=== PATIENT | female | born 1985 ===

== ENCOUNTER → 2017-05-27 | Outpatient (CLI) | payer BC | LOC: FIMAGING 11:33 | PROVIDERS: ATTEND Advanced Practice Midwife | DX: O10.912 Unspecified pre-existing hypertension complicating pregnancy, second trimester (principal); O24.410 Gestational diabetes mellitus in pregnancy, diet controlled; O99.212 Obesity complicating pregnancy, second trimester; E66.9 Obesity, unspecified; Z68.41 Body mass index [BMI] 40.0-44.9, adult; Z3A.14 14 weeks gestation of pregnancy ==

== ENCOUNTER → 2017-07-15 | Outpatient (CLI) | payer BC | LOC: FIMAGING 09:37 | PROVIDERS: ATTEND Advanced Practice Midwife | DX: O10.912 Unspecified pre-existing hypertension complicating pregnancy, second trimester (principal); O24.419 Gestational diabetes mellitus in pregnancy, unspecified control; O99.212 Obesity complicating pregnancy, second trimester; Z68.41 Body mass index [BMI] 40.0-44.9, adult; Z3A.21 21 weeks gestation of pregnancy ==

== ENCOUNTER 2017-07-26 11:19 | Observation (INO) | payer BC ==
[2017-07-26 11:59] LABS: % IMMATURE GRANULYOCYTES 0.5 % (0.0-1.1); ABSOLUTE IMMATURE GRANULOCYTES 0.05 10^3/uL (0.00-0.10); ADD DIFF? NO; ADD MORPH? NO; ADD SCAN? NO; ATYPICAL LYMPHOCYTE FLAG 0 (0-99); FRAGMENT RBC FLAG 0 (0-99); HEMATOCRIT 35.7 % (38.0-47.0); HEMOGLOBIN 11.7 g/dL (12.6-16.3); LEFT SHIFT FLG 0 (0-99); LIPEMIA HEMOLYSIS FLAG 80 (0-99); MEAN CELL HEMOGLOBIN 29.1 pg (27.9-34.1); MEAN CELL HEMOGLOBIN CONCENTR. 32.8 g/dL (32.4-36.7); MEAN CELL VOLUME 88.8 fL (81.5-99.8); MEAN PLATELET VOLUME 11.1 fL (8.7-11.7); PLATELET CLUMPS FLAG 0 (0-99); PLATELET COUNT 209 10^3/uL (150-400); RED BLOOD CELL COUNT 4.02 10^6/uL (4.18-5.33); RED CELL DISTRIBUTION WIDTH 13.7 % (11.5-15.2)
[2017-07-26 12:05] LABS: ALANINE AMINOTRANSFERASE 34 IU/L (9-52); ASPARTATE AMINOTRANSFERASE 15 IU/L (14-46); BILIRUBIN,TOTAL 0.1 mg/dL (0.1-1.4); BILIRUBIN-CONJUGATED 0.1 mg/dL (0.0-0.5); CREATININE 0.5 mg/dL (0.6-1.0); GLOMERULAR FILTRATION RATE > 60; LACTATE DEHYDROGENASE 386 IU/L (313-618); URIC ACID 4.1 mg/dL (2.5-6.8)
[2017-07-26 12:48] LABS: ALANINE AMINOTRANSFERASE 29 IU/L (9-52); ALBUMIN 3.6 g/dL (3.5-5.0); ALKALINE PHOSPHATASE 59 IU/L (38-126); ANION GAP 13 mEq/L (8-16); ASPARTATE AMINOTRANSFERASE 15 IU/L (14-46); BILIRUBIN,TOTAL 0.1 mg/dL (0.1-1.4); CALCIUM 9.7 mg/dL (8.5-10.4); CARBON DIOXIDE 18 mEq/l (22-31); CHLORIDE 106 mEq/L (97-110); CREATININE 0.5 mg/dL (0.6-1.0); GLOMERULAR FILTRATION RATE > 60; GLUCOSE 85 mg/dL (70-100); POTASSIUM 4.7 mEq/L (3.5-5.2); SODIUM 137 mEq/L (134-144); TOTAL PROTEIN 6.7 g/dL (6.3-8.2)
[2017-07-26 13:24] LABS: COLOR YELLOW; LEUKOCYTE ESTERASE,URINE NEGATIVE (NEGATIVE); NITRITE,URINE NEGATIVE (NEGATIVE)
[2017-07-26] MEDS ORDERED: NIFEdipine 10 MG CAP ONE (13:58)
[2017-07-26] MEDS: NIFEdipine 10 MG CAP PO SCH (14:00)
[2017-07-26] MEDS ORDERED: LABETALOL HCL 100 MG TAB PO ONE (15:39)
--- NOTE | 2017-07-26 16:10 | GHP ---
[f rep st] PREOP HISTORY AND PHYSICAL DATE OF ADMISSION: 07/26/2017 ADMITTING DIAGNOSES: Intrauterine at 23-4/7 weeks' gestation with contractions and elevated blood pressures. HISTORY OF PRESENT ILLNESS: The patient is a 32-year-old, 4, para 0-1-2-1, who has an unknow n last menstrual period, but an EDC of 11/19/2016, which was confirmed by a first trimester ultrasoun d. She has had good care at [facility], since registration at 9 weeks gestation. She has a course that is complicated for history of delivery at 32 weeks due to sev ere preeclampsia and chronic hypertension. She is currently on labetalol 100 mg twice daily. She al so has newly diagnosed gestational diabetes, likely pre-existing diabetes. However, the patient was diagnosed on a screening 1-hour GTT in the first trimester. Her hemoglobin A1c on presentation was 5 .1. The patient is on metformin for her diabetes as of now and followed by Endocrinology. She also has a significant history of depression, is on Zoloft, and a history of depression, and in creased BMI of 43 on presentation of the . On the morning of the , the patient was found to have elevated glucoses, and she has been followed by Endocrinology, working with them to control her fingersticks with metformin, but she may need insulin. She was also found to have elevated blood pressures in the cotton presser's office as high as 160s over 90s. She was sent to [facility] and [facility] for evaluation of hypertension and was found to have contractions every 2-6 minutes or so , which are increasing in frequency and duration. She says she has chronic back issues and the contr actions are in her abdomen, but also in her back and her legs. She denies leakage of fluid and vagin al bleeding and reports good movement. PHYSICAL EXAMINATION: Upon evaluation, the patient's blood pressures were elevated in the 160s to 17 0s over 80s to 90s. heart tones were in the 130s and appropriate for gestational age. Contrac tions were 2-5 minutes, but difficult to record on the tocometer. On cervical examination, no pooling or ferning. No abnormal discharge. Cervix was 1 cm, 50%, and fe ronnell fibronectin was performed. LABORATORY DATA: The patient had [facility] laboratories sent. White blood cell count of 10.74, hemoglobin 11.7, hematocrit 35.7, platelets 209. BUN 8, creatinine 0.5, AST 15, ALT 34, LDH 386, uric acid 4.1 . Her glucose was 141. Chemistry panel was otherwise normal. Urinalysis is negative for protein and fibronectin is pending. ASSESSMENT AND PLAN: A 32-year-old 4, para 0-1-2-1 with chronic hypertension, elevated blood pressures, and contractions. I do not feel that she has superimposed preeclampsia at this t [place]. I feel like her blood pressures need to be controlled with increasing antihypertensives. I gav e her 1 dose of p.o. Procardia as an antihypertensive, as well as to help control contractions. The patient felt flushed with this, and blood pressures have not dramatically improved. I am going to or arthur her a dose extra 100 of labetalol to increase her to 200 twice daily. The patient does feel bett er with her contractions with rest and the nifedipine. We will watch expectantly and await her fibronectin results. /[id number]/MODL
[2017-07-26] MEDS: CALCIUM CARBONATE 500 MG CHEWABLE TAB PO PRN (16:28)
[2017-07-26] MEDS: ACETAMINOPHEN 500 MG TAB PO PRN (21:16)
[2017-07-26] MEDS: metFORMIN HCL 500 MG TAB PO SCH (21:17)
[2017-07-26] MEDS: LABETALOL HCL 200 MG TAB PO SCH (22:11)
[2017-07-26] MEDS: SERTRALINE HCL 50 MG TAB PO SCH (23:16)
[2017-07-27] MEDS: CALCIUM CARBONATE 500 MG CHEWABLE TAB PO PRN (04:48)
[2017-07-27] MEDS ORDERED: ONDANSETRON DISINTEGRATING 4 MG TAB PO PRN (05:00)
[2017-07-27] MEDS: NIFEdipine 10 MG CAP PO SCH ×2 (07:05→08:33)
[2017-07-27] MEDS: metFORMIN HCL 500 MG TAB PO SCH (09:53)
[2017-07-27] MEDS: LABETALOL HCL 200 MG TAB PO SCH (09:53)
[2017-07-27] MEDS: ACETAMINOPHEN 500 MG TAB PO PRN (09:55)
[2017-07-27 09:56] VITALS: BP 127/81; PULSE 75
[2017-07-27] MEDS: SERTRALINE HCL 50 MG TAB PO SCH (10:14)
--- NOTE | 2017-07-27 11:35 | OBPROG ---
Labor Progress Note Assessment/Plan: Assessment: 32 y/o @ 23 3/7 weeks with chronic HTN and PTCs Plan: Pt is stable at this time BPs stable on Labetalol 200 mg BID, most recent 127/81; pt is asymptomatic PIH labs negative and negative proteinuria No further ctx's and negative FFN Pt is being discharged home with RX for Labetalol as well as large BP cuff Pt to continue monitoring BPs at home RTC in 3-4 days for BP check and visit 07/27/17 11:31 Subjective/Intrapartum Course: Pt seen and examined. Doing well, BIANCHI is better after Tylenol. Denies any visual changes or RUQ pain at this time. Good FM noted. Denies any MARBELLA or VB. Having some tightening, but not like pain she had when she came in. BS are controlled- FBS 81 and 2hr PP 91. Some heartburn noted this am and nausea-she received Zofran. 07/27/17 11:35 Objective: 07/26/17 11:45 07/26/17 11:45 Uric Acid 4.1 mg/dL (2.5-6.8) 07/26/17 11:45 Total Bilirubin 0.1 mg/dL (0.1-1.4) 07/26/17 11:45 Conjugated Bilirubin 0.1 mg/dL (0.0-0.5) 07/26/17 11:45 Unconjugated Bilirubin 0.0 mg/dL (0.0-1.1) 07/26/17 11:45 AST 15 IU/L (14-46) 07/26/17 11:45 ALT 29 IU/L (9-52) 07/26/17 11:45 Lactate Dehydrogenase 386 IU/L (313-618) 07/26/17 11:45 Group B Strep DNA POSITIVE (NEGATIVE) H 07/26/17 14:00 Temp Pulse Resp BP Pulse Ox 75 127/81 H 07/27/17 09:53 07/27/17 09:53 - Contraction Pattern Assessment Current Contraction Pattern: Other (Specify) (none) - FHR Assessment Mar FHR (bpm): 136 (by doppler) FHR Pattern Variability: Marked - Physical Exam General Appearance: WD/WN, alert, no apparent distress Respiratory: lungs clear, normal breath sounds Cardiac/Chest: regular rate, rhythm Abdomen: normal bowel sounds, non-tender, soft, other (Gravid) Extremities: non-tender, normal inspection, swelling DTR- Lower Extremities: Plantar (R): 1+, Plantar (L): 1+ Skin: normal color, warm/dry Neuro/Psych: alert, normal mood/affect, oriented x 3 Oxytocin Orders Assessment - Pre-Induction/Augmentation Assessment Gestational Age: 23 week(s) and 3 day(s) ICD10 Worksheet Patient Problems: Problems Problem Status Onset Chronic hypertension during , antepartum Acute uterine contractions in second trimester, antepartum Acute - ICD10 Problem Qualifiers (1) Chronic hypertension during , antepartum (2) uterine contractions in second trimester, antepartum
== END 2017-07-27 12:06 | disposition home or self-care (01) ==
LOC: FLD 11:19
PROVIDERS: ADMIT Obstetrics & Gynecology; ATTEND Obstetrics & Gynecology
DX: O60.02 Preterm labor without delivery, second trimester (principal); O24.419 Gestational diabetes mellitus in pregnancy, unspecified control; O16.2 Unspecified maternal hypertension, second trimester; Z3A.23 23 weeks gestation of pregnancy
CPT/HCPCS: 59025; 76815; G0378

== ENCOUNTER 2017-08-23 13:05 | Observation (INO) | payer BC ==
[2017-08-23 14:18] LABS: PLATELET COUNT 190 10^3/uL (150-400)
[2017-08-23] MEDS ORDERED: ASPIRIN EC 81 MG TAB PO ONE (16:00)
[2017-08-23] MEDS ORDERED: LIDOCAINE 2% VISCOUS 15 ML UDCUP PO ONE (18:30)
[2017-08-23] MEDS ORDERED: HYOSCYAMINE SULFATE 0.125 MG TAB PO ONE (18:30)
[2017-08-23] MEDS ORDERED: MAG HYDROX/AL HYDROX/SIMETH 30 ML UDCUP PO ONE (18:30)
[2017-08-23] MEDS ORDERED: SERTRALINE HCL 50 MG TAB PO SCH (18:30)
[2017-08-23] MEDS ORDERED: LABETALOL HCL 100 MG TAB ONE (19:43)
[2017-08-23 19:46] VITALS: BP 174/95; PULSE 77
[2017-08-23] MEDS ORDERED: metFORMIN SR 500 MG TAB PO SCH (21:00)
[2017-08-23] MEDS ORDERED: LABETALOL HCL 100 MG TAB PO SCH (21:00)
[2017-08-23] MEDS ORDERED: LABETALOL HCL 200 MG TAB PO SCH (21:00)
--- NOTE | 2017-08-23 22:25 | GHP ---
[f rep st] PREOP HISTORY AND PHYSICAL DATE OF ADMISSION: 08/23/2017 OB TRIAGE NOTE ADMISSION DIAGNOSIS: Intrauterine at 27-3/7 weeks gestation with chronic hypertension, wor sening blood pressures, abdominal pain, labor contractions. HISTORY OF PRESENT ILLNESS: The patient is a 32-year-old, 4, para 0-1-2-1, who is 27-3/7 wee pr gestation with an EDC of 11/19/2017, consistent with a first trimester ultrasound. She has had a complicated course with chronic hypertension. She is currently on labetalol 200 mg b.i.d. She has a history of severe preeclampsia with a history of delivery at 32 weeks due to severe preeclampsia superimposed on her chronic hypertension with her baby 10 years ago. She is also a ges tational diabetic, likely pre-existing diabetes, who is on metformin and followed by Endocrinology [facility]. She also has a significant history of depression and had suicidal ideation earlier in this and she is on Zoloft 50 mg daily. She has an increased BMI and she has had some la bor contractions. She was evaluated most recently on 08/21/2017 and had a positive fibronectin . The morning of the , the patient was complaining of increasing abdominal pain in her upper abdo men at her fundus; also in her lower pelvis/pubic symphysis, radiating around to her hips and her low er back. She describes the pain as coming in waves, but was sharp and stabbing in nature, and also a ccompanied with increase acid reflux and nausea. She denies leakage of fluid, vaginal bleeding, and has had good movement. She also reports headaches that have increased today that are resistant to her usual hydration and baby aspirin. She was monitoring her blood pressures at home and they we re reported to be elevated in the 150s to 170s over low 100s to 110s, so she presented to Labor and [facility] for evaluation and assessment of the above symptoms. TRIAGE COURSE: In Labor and Delivery, she continued to have some elevated blood pressures, but not a s elevated as they had been at home on her home monitoring. She ranged in the 137, 138 to 184 over 7 0s to 95. She had heart tones in the 140s and appropriate for gestational age. She had a regu lar uterine irritability on the monitor, but no true contractions. She had PIH labs which were cirilo l, including a stable platelets of 190. A urinalysis that was normal. Cervical exam was fingertip a nd long, -2. Unchanged from a prior exam in 08/21. The patient was given a GI cocktail and her labe talol dose was increased to 300 mg b.i.d. Her blood pressure this improved after that dose to the 14 0s over 70s. The patient said she felt slightly better after the GI cocktail and was able to the eat . Denied any nausea or vomiting. Cramping and contractions were not completely resolved, but improv ed, and patient wished to go home. PLAN: So, patient was discharged home with instructions to increase her labetalol to 300 b.i.d., to keep her appointment with [facility] for ultrasound on the , and in our office for the following week to track her blood pressures, and to call for high readings or low readings or increasing labor symptoms. /[id number]/MODL
== END 2017-08-23 22:10 | disposition home or self-care (01) ==
LOC: FLD 13:05
PROVIDERS: ADMIT Obstetrics & Gynecology; ATTEND Obstetrics & Gynecology
DX: O10.912 Unspecified pre-existing hypertension complicating pregnancy, second trimester (principal); O09.892 Supervision of other high risk pregnancies, second trimester; O24.415 Gestational diabetes mellitus in pregnancy, controlled by oral hypoglycemic drugs; O99.342 Other mental disorders complicating pregnancy, second trimester; F32.9 Major depressive disorder, single episode, unspecified; Z3A.27 27 weeks gestation of pregnancy
CPT/HCPCS: G0378 ×2

== ENCOUNTER → 2017-08-29 | Outpatient (CLI) | payer BC | LOC: FIMAGING 13:47 | PROVIDERS: ATTEND Obstetrics & Gynecology | DX: O36.63X0 Maternal care for excessive fetal growth, third trimester, not applicable or unspecified (principal); O40.3XX0 Polyhydramnios, third trimester, not applicable or unspecified; O10.913 Unspecified pre-existing hypertension complicating pregnancy, third trimester; O24.415 Gestational diabetes mellitus in pregnancy, controlled by oral hypoglycemic drugs; O60.03 Preterm labor without delivery, third trimester; O99.213 Obesity complicating pregnancy, third trimester; Z68.41 Body mass index [BMI] 40.0-44.9, adult; Z87.59 Personal history of other complications of pregnancy, childbirth and the puerperium; Z3A.28 28 weeks gestation of pregnancy ==

== ENCOUNTER 2017-09-06 11:26 | Observation (INO) | payer BC ==
[2017-09-06] MEDS ORDERED: LR 1,000 ML IV PRN (12:01)
[2017-09-06] MEDS ORDERED: IBUPROFEN 600 MG TAB PO PRN (12:01)
[2017-09-06] MEDS ORDERED: AMMONIA AROMATIC 1 EACH AMP IH PRN (12:01)
[2017-09-06] MEDS ORDERED: OLIVE OIL 118 ML BTL MISC PRN (12:01)
[2017-09-06] MEDS ORDERED: EPSOM SALT 454 GM TP PRN (12:01)
[2017-09-06] MEDS ORDERED: OXYTOCIN 20 UNIT in LR 1,000 ML IV PRN (12:01)
[2017-09-06] MEDS ORDERED: TERBUTALINE SULFATE 1 MG/ML VIAL SC ONE (12:04)
[2017-09-06 13:24] LABS: PLATELET COUNT 175 10^3/uL (150-400)
--- NOTE | 2017-09-06 15:04 | PDGENHP ---
History and Physical - Chief Complaint Headache and contractions - History of Present Illness Patient is a 32 year old at 29 3/7 weeks gestation with EDC 11/19/2017 who presents to labor and delivery for complaints of headache and labor. Patient states has headache and right upper quadrant pain daily. Notices stars in vision once labetalol was increased. +FM No vaginal bleeding occ contractions. Chronic back pain since delivery of her daughter at 32 weeks gestation. Patient states at home blood pressures have been 160-180/90- 100 and she took her labetalol this morning. Patient refusing increase in labetalol.Patient is well known to [facility] with the following diagnosis 1. Obesity BMI 43 2. Gestational Diabetic on Metformin 3. Chronic Hypertension Labetalol 400 mg BID on labor and delivery 160/90's changed to 180/105 4. labor with cervical length at 2.0cm today (range 1.4 t 2.0cm) 5.Previous history of preEclampsia and laor with delivery at 32 week gestation 6. Chronic back pain with bulging disc History Information - Allergies/Home Medication List Allergies/Adverse Reactions: No Known Allergies Allergy (Unverified 07/26/17 11:28) Home Medications: Albuterol [Proventil 2 mg (*)] PRN 08/23/17 [Last Taken Unknown] Aspirin EC [Aspirin EC 81 mg (*)] 81 mg PO BID 08/23/17 [Last Taken 08/23/17 08: 00] Iron 08/23/17 [Last Taken Unknown] Ranitidine HCl [Zantac 75] 150 mg PO 08/23/17 [Last Taken 08/21/17 20:00] Sertraline HCl [Zoloft 25mg (*)] 50 mg PO DAILY 08/23/17 [Last Taken 08/23/17 08 :00] metFORMIN HCL [Metformin HCl] 500 mg PO 08/23/17 [Last Taken 08/23/17 08:00] I have personally reviewed and updated: medical history - Past Medical History diabetes type 2, hypertension - Social History Smoking Status: Former smoker Review of Systems Review of Systems: Physical Exam Physical Exam: Constitutional: no apparent distress, appears nourished Cardiovascular: regular rate and rhythym, no murmur, rub, or gallop Respiratory: no respiratory distress, no rales or rhonchi Gastrointestinal: normoactive bowel sounds, soft, non-tender abdomen, no palpable masses Skin: warm, normal color Musculoskeletal: full muscle strength Neurologic: AAOx3 Psychiatric: interacting appropriately Lab Data & Imaging Review 09/06/17 13:15 09/06/17 13:15 WBC 9.28 10^3/uL (3.80-9.50) 09/06/17 13:15 RBC 3.74 10^6/uL (4.18-5.33) L 09/06/17 13:15 Hgb 11.1 g/dL (12.6-16.3) L 09/06/17 13:15 Hct 33.1 % (38.0-47.0) L 09/06/17 13:15 MCV 88.5 fL (81.5-99.8) 09/06/17 13:15 MCH 29.7 pg (27.9-34.1) 09/06/17 13:15 MCHC 33.5 g/dL (32.4-36.7) 09/06/17 13:15 RDW 14.7 % (11.5-15.2) 09/06/17 13:15 Plt Count 175 10^3/uL (150-400) 09/06/17 13:15 MPV 11.1 fL (8.7-11.7) 09/06/17 13:15 Neut % (Auto) 74.7 % (39.3-74.2) H 09/06/17 13:15 Lymph % (Auto) 17.5 % (15.0-45.0) 09/06/17 13:15 [place] % (Auto) 6.1 % (4.5-13.0) 09/06/17 13:15 Eos % (Auto) 1.2 % (0.6-7.6) 09/06/17 13:15 Baso % (Auto) 0.2 % (0.3-1.7) L 09/06/17 13:15 Nucleat RBC Rel Count 0.0 % (0.0-0.2) 09/06/17 13:15 Absolute Neuts (auto) 6.93 10^3/uL (1.70-6.50) H 09/06/17 13:15 Absolute Lymphs (auto) 1.62 10^3/uL (1.00-3.00) 09/06/17 13:15 Absolute Monos (auto) 0.57 10^3/uL (0.30-0.80) 09/06/17 13:15 Absolute Eos (auto) 0.11 10^3/uL (0.03-0.40) 09/06/17 13:15 Absolute Basos (auto) 0.02 10^3/uL (0.02-0.10) 09/06/17 13:15 Absolute Nucleated RBC 0.00 10^3/uL (0-0.01) 09/06/17 13:15 Immature Gran % 0.3 % (0.0-1.1) 09/06/17 13:15 Immature Gran # 0.03 10^3/uL (0.00-0.10) 09/06/17 13:15 BUN 8 mg/dL (7-23) 09/06/17 13:15 Creatinine 0.6 mg/dL (0.6-1.0) 09/06/17 13:15 Estimated GFR > 60 09/06/17 13:15 Glucose 85 mg/dL (70-100) 09/06/17 13:15 Uric Acid 7.6 mg/dL (2.5-6.8) H 09/06/17 13:15 Total Bilirubin 0.6 mg/dL (0.1-1.4) 09/06/17 13:15 Conjugated Bilirubin 0.4 mg/dL (0.0-0.5) 09/06/17 13:15 Unconjugated Bilirubin 0.2 mg/dL (0.0-1.1) 09/06/17 13:15 AST 22 IU/L (14-46) 09/06/17 13:15 ALT 30 IU/L (9-52) 09/06/17 13:15 Lactate Dehydrogenase 431 IU/L (313-618) 09/06/17 13:15 Imaging Review: Cervical length 2.0 cm cephalic presentation and posterior placenta Assessment & Plan Assessment: 1. Obesity BMI 43 2. Gestational Diabetic on Metformin 3. Chronic Hypertension Labetalol 400 mg BID 4. labor with cervical length at 2.0cm today (range 1.4 t 2.0cm) 5.Previous history of preEclampsia and labor with delivery at 32 week gestation Plan: Transfer to [place] Dr.R Figueroa Maternal Medicine Physician Magnesium sulfate for elevated Blood pressures now at 180/104 and headache IV Labetalol ordered Betamethasone for lung maturity Will most likely need insulin upon arrival to labor and Delivery at [place] [facility] transportation arranged. Patient and aware of risk and benefits. Patient and request only female providers and on transport
[2017-09-06] MEDS ORDERED: CALCIUM GLUC 10% 1 GM/10 ML VIAL IVP PRN (15:09)
[2017-09-06] MEDS ORDERED: BETAMETHASONE IM SYRINGE IM ONE (15:12)
[2017-09-06] MEDS ORDERED: Mag Sulf 500 ML IV SCH (15:30)
[2017-09-06] MEDS ORDERED: LABETALOL HCL 200 MG TAB PO SCH (16:00)
[2017-09-06] MEDS: MAGNESIUM SULF 4 GM/WATER 100 ML IV ONE ×2 (16:04→17:20)
[2017-09-06 16:15] VITALS: BP 189/101; PULSE 76
[2017-09-06] MEDS ORDERED: LIDOCAINE 1% 2 ML INJ ONE (16:33)
== END 2017-09-06 18:30 | disposition short-term general hospital (02) ==
LOC: FLD 11:26
PROVIDERS: ADMIT Obstetrics & Gynecology; ATTEND Obstetrics & Gynecology
DX: O60.03 Preterm labor without delivery, third trimester (principal); O10.013 Pre-existing essential hypertension complicating pregnancy, third trimester; O24.415 Gestational diabetes mellitus in pregnancy, controlled by oral hypoglycemic drugs; O09.213 Supervision of pregnancy with history of pre-term labor, third trimester; O26.873 Cervical shortening, third trimester; O99.213 Obesity complicating pregnancy, third trimester; Z68.41 Body mass index [BMI] 40.0-44.9, adult; O26.893 Other specified pregnancy related conditions, third trimester; O99.343 Other mental disorders complicating pregnancy, third trimester; O99.820 Streptococcus B carrier state complicating pregnancy; R51 Headache; M54.9 Dorsalgia, unspecified; F32.9 Major depressive disorder, single episode, unspecified; Z3A.29 29 weeks gestation of pregnancy
CPT/HCPCS: 82947-QW; J0610; J0702; J3475